=== PATIENT | female | born 1985 | race Hispanic/Latino ===

== ENCOUNTER 2019-04-24 06:32 | Day surgery (SDC) | payer OTHER ==
[~2019-04-24] VITALS: Ht 162.6 cm; Wt 99.8 kg
[~2019-04-24 06:32] MED LIST: ESOM40CA54 PO; LINA72CA PO; MULT-1205 PO; SODIUM CHLORIDE 0.9% 1000ML 1,000 ML IV ONE
[2019-04-24 07:51] VITALS: BP 120/86
[2019-04-24] MEDS ORDERED: PROPOFOL 10 MG/ML 20ML VIAL IV ONE (08:33)
[2019-04-24 08:42] VITALS: BP 126/85
[2019-04-24 08:47] VITALS: BP 124/85
[2019-04-24 08:52] VITALS: BP 120/85
[2019-04-24 09:02] VITALS: BP 126/74
--- NOTE | 2019-04-24 09:05 | NUR ---
DC PT DC HOME VIA WC,NO DISTRESS NOTED. DENIED ANY PAIN OR DISCOMFORTS.A CCOMPANIED BY HER MOTHER.
== END 2019-04-24 09:05 | disposition home or self-care (01) ==
LOC: ENDO 06:32 → DAH 06:32 → ENDO 09:05
PROVIDERS: ATTEND Internal Medicine
DX: K29.50 Unspecified chronic gastritis without bleeding (principal); K22.8 Other specified diseases of esophagus; E66.9 Obesity, unspecified; K59.01 Slow transit constipation; E55.9 Vitamin D deficiency, unspecified; Z79.899 Other long term (current) drug therapy; Z68.36 Body mass index [BMI] 36.0-36.9, adult
CPT/HCPCS: 36415; 43239; 84703; A4215; A4221; A4222; A4223; A4606; A4615; A4663; J2704; J7030

== ENCOUNTER 2021-03-25 06:33 | Day surgery (SDC) | payer OTHER ==
[~2021-03-25] VITALS: Ht 162.6 cm; Wt 90.7 kg
[~2021-03-25 06:33] MED LIST changes: +0.9%NACL 1000ML 1,000 ML IV ONE; +BISA5TAB12 PO; -LINA72CA PO; -MULT-1205 PO; +MV-M1TAB20 PO; -SODIUM CHLORIDE 0.9% 1000ML 1,000 ML IV ONE; +VITA1CAP85 PO; +ZINC50TA71 PO
[2021-03-25 06:56] VITALS: BP 123/65
[2021-03-25] MEDS ORDERED: PROPOFOL 10 MG/ML 20ML VIAL IV ONE (08:38)
[2021-03-25 08:51] VITALS: BP 108/50
[2021-03-25 08:56] VITALS: BP 110/53
[2021-03-25 09:01] VITALS: BP 115/62
[2021-03-25 09:06] VITALS: BP 109/67
[2021-03-25 09:11] VITALS: BP 117/65
== END 2021-03-25 09:20 | disposition home or self-care (01) ==
LOC: ENDO 06:33 → DAH 06:33 → ENDO 09:20
PROVIDERS: ATTEND Internal Medicine Gastroenterology
DX: R10.12 Left upper quadrant pain (principal); K31.89 Other diseases of stomach and duodenum; R11.0 Nausea; K22.8 Other specified diseases of esophagus; K21.9 Gastro-esophageal reflux disease without esophagitis; K59.01 Slow transit constipation; K76.0 Fatty (change of) liver, not elsewhere classified; E55.9 Vitamin D deficiency, unspecified; Z79.899 Other long term (current) drug therapy; Z20.822 Contact with and (suspected) exposure to COVID-19
CPT/HCPCS: 36415; 43239; 84703; 87635; A4606; C9803; J2704; J7030

== ENCOUNTER 2022-04-27 10:17 | Day surgery (SDC) | payer OTHER, SELFPAY ==
[~2022-04-27] VITALS: Ht 165.1 cm; Wt 83.9 kg
[2022-04-27] VITALS (8 sets, daily range): BP systolic 94–117; BP diastolic 52–78
[~2022-04-27 10:17] MED LIST changes: -0.9%NACL 1000ML 1,000 ML IV ONE; -BISA5TAB12 PO; -ESOM40CA54 PO; -MV-M1TAB20 PO; +OMEP40CA21 PO; +PLEC3TAB2 PO; -VITA1CAP85 PO; -ZINC50TA71 PO
[2022-04-27] MEDS ORDERED: 0.9%NACL 1000ML 1,000 ML IV ONE (11:04)
[2022-04-27] MEDS ORDERED: PROPOFOL 10 MG/ML 20ML VIAL IV ONE ×2 (11:43)
== END 2022-04-27 12:30 | disposition home or self-care (01) ==
LOC: DAH 10:17 → ENDO 10:17
PROVIDERS: ATTEND Internal Medicine Gastroenterology
DX: K59.04 Chronic idiopathic constipation (principal); K63.5 Polyp of colon; E66.9 Obesity, unspecified; K76.0 Fatty (change of) liver, not elsewhere classified; R10.10 Upper abdominal pain, unspecified; R94.5 Abnormal results of liver function studies; R93.3 Abnormal findings on diagnostic imaging of other parts of digestive tract; E55.9 Vitamin D deficiency, unspecified; K21.9 Gastro-esophageal reflux disease without esophagitis; Z86.16 Personal history of COVID-19; Z98.890 Other specified postprocedural states; Z98.891 History of uterine scar from previous surgery; Z98.51 Tubal ligation status; Z79.01 Long term (current) use of anticoagulants; Z68.30 Body mass index [BMI] 30.0-30.9, adult
CPT/HCPCS: 87426; 45380; 45385; 81025; J7030; J2704 ×2